=== PATIENT | female | born 1965 | race Caucasian/White ===

== ENCOUNTER 2016-11-30 07:50 | Outpatient (CLI) | payer OTHER ==
--- NOTE | 2016-11-30 14:05 | DIAGNOSTIC IMAGING REPORT ---
PROCEDURE: US SOFT TISSUE THYR/NECK/HEAD INDICATION: RECHECK MASS FROM 09/22/16 TECHNIQUE: San scale and color Doppler sonographic images of the thyroid gland were obtained. COMPARISON: Thyroid ultrasound 09/11/2014. FINDINGS: There is a right neck subcutaneous isoechoic lesion measuring 3.3 x 0.9 cm consistent with a lipoma RIGHT LOBE: Measures 5 x 2.1 x 2.1 cm and is slightly heterogeneous. LEFT LOBE: Measures 5.3 x 2.6 x 2.1 cm and is heterogeneous. There is a lower pole questionable poorly defined 2.6 x 2.1 x 2.4 cm solid nodule, similar to prior study. ISTHMUS: Measures 2.7 mm. IMPRESSION: 1. Stable right neck subcutaneous lipoma 2. Heterogeneous left thyroid lobe with questionable nodule in the lower pole, stable.
== END 2016-11-30 23:00 ==
LOC: US SRH 07:50
DX: D17.0 Benign lipomatous neoplasm of skin and subcutaneous tissue of head, face and neck (principal)